=== PATIENT | male | born 1950 ===

== ENCOUNTER → 2019-09-09 09:05 | Outpatient (CLI) | payer OTHER ==
[~2019-09-09 09:05] MED LIST: AVALIDE 150-12.1 TA1 PO; BENADRYL25 MG PO; CATAFLAM50 MG PO; CRESTOR20 MG PO; MEDROL4 MG PO; NORVASC5 MG PO; ULTRACET PO
== END | disposition home or self-care (01) ==
LOC: RAD 09:05
DX: M12.841 Other specific arthropathies, not elsewhere classified, right hand (principal); M12.842 Other specific arthropathies, not elsewhere classified, left hand